=== PATIENT | female | born 1975 | race Caucasian/White ===

== ENCOUNTER 2016-12-09 10:54 | Emergency (ER) | payer MEDICAID ==
[~2016-12-09] VITALS: Ht 165.1 cm; Wt 51.7 kg
[~2016-12-09 10:54] MED LIST: ATIVAN1 MG PO
[2016-12-09 11:30] VITALS: BP 138/90
--- NOTE | 2016-12-09 11:36 | NUR ---
PT AMBULATED TO BED 8 AT THIS TIME.
[2016-12-09 11:40] VITALS: BP 138/90
--- NOTE | 2016-12-09 11:41 | NUR ---
41/F presents to the ED for evaluation of nose bleeds for the past 4-5 days. Pt also reports having stitches to left cheek in place for approximately over 1 month. Pt also has complaints of migraine headaches for the past 3-4 months. Pt states she had a nose bleed this morning and it stopped about 1-2 hours prior to arrival. Patient also reports being an alcoholic and has had 4 drinks today. Patient is AOX4, calm and no visible signs of distress noted. VSS.
--- NOTE | 2016-12-09 12:07 | NUR ---
Patient ambulated to restroom with steady gait to provide UA.
--- NOTE | 2016-12-09 12:13 | NUR ---
Patient being evaluated by physician at bedside.
--- NOTE | 2016-12-09 12:45 | NUR ---
NO FARTHER NOSEBLEED IN ER.DENIES DISCOMFORT
--- NOTE | 2016-12-09 12:55 | NUR ---
Chart checked and completed. The patient's care was reviewed and supervised by Tawanna Greenberg RN.
--- NOTE | 2016-12-09 12:55 | NUR ---
Patient discharged with v/s stable. Written and verbal after care instructions given and explained. Patient alert, oriented and verbalized understanding of instructions. Ambulatory with steady gait. All questions addressed prior to discharge. ID band removed. Patient advised to follow up with PMD. Rx of CLARITIN,OXYMETAZOLINE HCL 0.05% NASAL SPRAYgiven. Patient educated on indication of medication including possible reaction and side effects. Opportunity to ask questions provided and answered.
[2017-02-05] MEDS ORDERED: CEPHULAC10 GM/152 PO (15:03)
[2017-02-05] MEDS ORDERED: NATURE'S BLEND100 M2 PO (15:03)
[2017-02-05] MEDS ORDERED: FEROSUL325 MG PO (15:03)
[2017-02-05] MEDS ORDERED: FUROSEMIDE40 M1 PO (15:03)
[2017-02-05] MEDS ORDERED: FLORASTOR250 MG PO (15:03)
[2017-02-05] MEDS ORDERED: ALDACTONE50 M1 PO (15:03)
[2017-02-05] MEDS ORDERED: NATURE'S BLEND F1 M1 PO (15:03)
[2017-02-05] MEDS ORDERED: LEVAQUIN750 MG PO (15:03)
[2017-02-05] MEDS ORDERED: ATIVAN1 MG PO (15:03)
[2017-02-05] MEDS ORDERED: XIFAXAN550 MG PO (15:05)
[2017-02-05] MEDS ORDERED: ROXICODONE5 M1 PO (15:05)
== END 2016-12-09 12:55 | disposition home or self-care (01) ==
LOC: MED 11:09
DX: R04.0 Epistaxis (principal); S01.412D Laceration without foreign body of left cheek and temporomandibular area, subsequent encounter; F10.10 Alcohol abuse, uncomplicated; Y90.9 Presence of alcohol in blood, level not specified

== ENCOUNTER 2017-01-07 01:55 | Emergency (ER) | payer MEDICAID ==
[~2017-01-07] VITALS: Ht 165.1 cm; Wt 59.0 kg
[2017-01-07 02:00] VITALS: BP 115/78
--- NOTE | 2017-01-07 02:52 | NUR ---
41/F BIB FAMILY W/C/O DIZZINESS S/P FALL 3DAYS AGO. STATES SHE HAS LEFT FLANK PAIN RADIATING TO LOWER BACK. DENIES ANY FEVER, NAUSEA OR VOMITTING. NO S/S OF DISTRESS NOTED AT THE MOMENT. ER MD AWARED.
--- NOTE | 2017-01-07 02:54 | NUR ---
Dr. Wise evaluating patient at bedside.
[2017-01-07] MEDS ORDERED: MORPHINE SULFATE 10 MG/ML SYR IM ONE (03:20)
[2017-01-07 04:03] VITALS: BP 112/64
--- NOTE | 2017-01-07 04:03 | NUR ---
Patient discharged BY ER MD with v/s stable. Written and verbal after care instructions given and explained BY DR OZUNA. Patient verbalized understanding. Ambulatory with steady gait. All questions addressed prior to discharge. Advised to follow up with PMD OR RETURN BACK TO ER IF CONDITION GETS WORSE..
[2017-02-05] MEDS ORDERED: FUROSEMIDE40 M1 PO (15:03)
[2017-02-05] MEDS ORDERED: NATURE'S BLEND100 M2 PO (15:03)
[2017-02-05] MEDS ORDERED: NATURE'S BLEND F1 M1 PO (15:03)
[2017-02-05] MEDS ORDERED: LEVAQUIN750 MG PO (15:03)
[2017-02-05] MEDS ORDERED: FLORASTOR250 MG PO (15:03)
[2017-02-05] MEDS ORDERED: ALDACTONE50 M1 PO (15:03)
[2017-02-05] MEDS ORDERED: FEROSUL325 MG PO (15:03)
[2017-02-05] MEDS ORDERED: ATIVAN1 MG PO (15:03)
[2017-02-05] MEDS ORDERED: CEPHULAC10 GM/152 PO (15:03)
[2017-02-05] MEDS ORDERED: ROXICODONE5 M1 PO (15:05)
[2017-02-05] MEDS ORDERED: XIFAXAN550 MG PO (15:05)
== END 2017-01-07 04:03 | disposition home or self-care (01) ==
LOC: MED 01:55
DX: S33.5XXA Sprain of ligaments of lumbar spine, initial encounter (principal); K70.9 Alcoholic liver disease, unspecified; X58.XXXA Exposure to other specified factors, initial encounter; Y93.89 Activity, other specified; Y92.89 Other specified places as the place of occurrence of the external cause; Y99.8 Other external cause status
CPT/HCPCS: 81002; 81025; 96372; 99283; J2270

== ENCOUNTER 2017-01-24 04:34 | Emergency (ER) | payer MEDICAID ==
[~2017-01-24] VITALS: Ht 165.1 cm; Wt 56.7 kg
[2017-01-24 04:39] VITALS: BP 111/85
--- NOTE | 2017-01-24 04:47 | NUR ---
Patient to OF.
--- NOTE | 2017-01-24 04:48 | NUR ---
PATIENT PRESENTS TO ED WITH FELL LAST WEEKEND. LOWER BACK PAIN PERSISTS. . PT DENIES N/V/D; SKIN IS PINK/WARM/DRY; AAOX4 WITH EVEN AND STEADY GAIT; LUNGS CLEAR BL; HR EVEN AND REGULAR; PT DENIES ANY FEVER, CP, SOB, OR COUGH AT THIS TIME; PATIENT STATES PAIN OF 10/10 AT THIS TIME; VSS; PATIENT POSITIONED FOR COMFORT; HOB ELEVATED; BEDRAILS UP X2; BED DOWN. ER MD MADE AWARE OF PT STATUS.
--- NOTE | 2017-01-24 05:07 | NUR ---
Dr. James evaluating patient.
--- NOTE | 2017-01-24 05:17 | NUR ---
Patient going to XRAY via wheelchair per tech.
--- NOTE | 2017-01-24 05:30 | NUR ---
Patient back from XRAY via wheelchair per tech.
[2017-01-24 06:19] VITALS: BP 114/79
--- NOTE | 2017-01-24 06:19 | NUR ---
Patient discharged with v/s stable. Written and verbal after care instructions given and explained. Patient alert, oriented and verbalized understanding of instructions. Ambulatory with steady gait. All questions addressed prior to discharge. ID band removed. Patient advised to follow up with PMD. Rx of NAPROSYN 375MG given. Patient educated on indication of medication including possible reaction and side effects. Opportunity to ask questions provided and answered.
[2017-02-05] MEDS ORDERED: FLORASTOR250 MG PO (15:03)
[2017-02-05] MEDS ORDERED: NATURE'S BLEND F1 M1 PO (15:03)
[2017-02-05] MEDS ORDERED: CEPHULAC10 GM/152 PO (15:03)
[2017-02-05] MEDS ORDERED: ATIVAN1 MG PO (15:03)
[2017-02-05] MEDS ORDERED: ALDACTONE50 M1 PO (15:03)
[2017-02-05] MEDS ORDERED: FEROSUL325 MG PO (15:03)
[2017-02-05] MEDS ORDERED: FUROSEMIDE40 M1 PO (15:03)
[2017-02-05] MEDS ORDERED: LEVAQUIN750 MG PO (15:03)
[2017-02-05] MEDS ORDERED: NATURE'S BLEND100 M2 PO (15:03)
[2017-02-05] MEDS ORDERED: ROXICODONE5 M1 PO (15:05)
[2017-02-05] MEDS ORDERED: XIFAXAN550 MG PO (15:05)
== END 2017-01-24 06:19 | disposition home or self-care (01) ==
LOC: MED 04:34
DX: M54.9 Dorsalgia, unspecified (principal)

== ENCOUNTER 2017-01-31 08:12 | Inpatient (IN) | payer MEDICAID ==
[~2017-01-31] VITALS: Ht 160 cm; Wt 63.0 kg
[~2017-01-31 08:12] MED LIST changes: -ATIVAN1 MG PO; +LORA-476 PO
[2017-01-31 08:30] VITALS: BP 105/72
--- NOTE | 2017-01-31 08:32 | NUR ---
Patient ambulated to bed 3. RN evaluating patient at bedside.
[2017-01-31] MEDS ORDERED: FAMOTIDINE 20 MG/2 ML VIAL IVP ONE (08:40)
[2017-01-31] MEDS ORDERED: ONDANSETRON 4 MG/2 ML VIAL IVP ONE (08:40)
--- NOTE | 2017-01-31 09:00 | NUR ---
PATIENT PRESENTS TO ED WITH LARGE ADBOMINAL DISTENSION, BACK PAIN AND NAUSEA . PT STATES ABDOMEN DISTENDED YESTERDAY . ALSO C/O CONSTIPATION AND OLIGURIA SKIN IS JAUNDICE WELL SCLERA YELLOWING--DRY COOL TO TOUCH; AAOX4 WITH EVEN AND STEADY GAIT; LUNGS CLEAR BL; HR EVEN AND REGULAR; PT DENIES ANY FEVER, CP, SOB, OR COUGH AT THIS TIME; PATIENT STATES PAIN OF 10/10 AT THIS TIME; VSS; PATIENT POSITIONED FOR COMFORT; HOB ELEVATED; BEDRAILS UP X2; BED DOWN. ER MD MADE AWARE OF PT STATUS.
[2017-01-31] MEDS: NACL 0.9% 1,000 ML IV SCH ×3 (09:03→23:29)
--- NOTE | 2017-01-31 09:10 | NUR ---
# 14 FR straight catheter utilizing sterile technique. Immediate return of 30 ml orange, clear urine noted. Bedside drainage bag placed below level of bladder. Urine sample collected and sent to lab. Pt tolerated procedure well. Pt placed into position of comfort. Warm blankets provided.
[2017-01-31 09:14] LABS: HEMATOCRIT 25.6 % (36-48); HEMOGLOBIN 7.8 g/dL (12.0-16.0); MEAN CORPUSCULAR HEMOGLOBIN 25 pg (27-31); MEAN CORPUSCULAR HGB CONC 30 g/dL (33-37); MEAN CORPUSCULAR VOLUME 84 fL (80-94); PLATELET COUNT (AUTO) 81 K/uL (140-450); RED BLOOD CELL COUNT(AUTO) 3.05 MIL/uL (4.20-5.40); RED CELL DISTRIBUTION WIDTH 19.3 % (11.6-13.7); WHITE BLOOD COUNT (AUTO) 13.5 K/uL (4.8-10.8)
[2017-01-31 09:23] LABS: ANION GAP 11.7 (8-16); CALCIUM 7.6 mg/dL (8.5-10.1); CARBON DIOXIDE 27.9 mmol/L (21-32); CREATININE 0.6 mg/dL (0.6-1.3); LYMPHOCYTES % (MANUAL) 13 % (20-46); MONOCYTES % (MANUAL) 5 % (5-12); NEUTROPHILS % (MANUAL) 82 (43-65); POTASSIUM 3.6 mmol/L (3.5-5.1)
[2017-01-31 09:25] LABS: INR 1.4 (0.8-1.2); PARTIAL THROMBOPLASTIN TIME 30.1 secs (22-35.6); PROTHROMBIN TIME 13.6 secs (10.8-13.4)
[2017-01-31 09:27] LABS: ALBUMIN 2.5 g/dL (3.4-5.0); TOTAL BILIRUBIN 4.6 mg/dL (0.0-1.0)
--- NOTE | 2017-01-31 09:30 | NUR ---
PT TO CT VIA [facility]
--- NOTE | 2017-01-31 09:47 | NUR ---
X-Ray at bedside.
--- NOTE | 2017-01-31 09:47 | NUR ---
RETURNED FROM CT---
[2017-01-31] MEDS ORDERED: MORPHINE SULFATE 4 MG/ML SYR IVP ONE (10:15)
[2017-01-31] MEDS ORDERED: PSEUDOEPHEDRINE 30 MG TAB ONE (10:30)
--- NOTE | 2017-01-31 10:39 | NUR ---
MEDICATED FOR BACK AND ABD PAIN--05/03; PT ADMITS TOLERABLE LEVEL IS 02/01--WILL CONTINUE TO OBSERVE AND MONITOR FOR PAIN CONTROL---ULTRA SOUND AT BEDSIDE AT THIS TIME.
[2017-01-31] MEDS ORDERED: cefTRIAXone 2,000 MG in DEXTROSE 5% 100 ML IV ONE (11:00)
--- NOTE | 2017-01-31 11:32 | NUR ---
PT DENIES PAIN AT THIS TIME. RESTING WITH OU CLOSED , NO S/S RESP DISTRESS---WILL CONTINUE TO OBSERVE FOR PAIN CONTROL
[2017-01-31] MEDS ORDERED: cefTRIAXone 2,000 MG VIAL ONE (11:39)
--- NOTE | 2017-01-31 11:49 | NUR ---
Pt transferred to Tele via [employer], REPORT GIVEN TO IAN MATHEW
[2017-01-31 11:56] LABS: LACTIC ACID 2.4 mmol/L (0.4-2.0)
--- NOTE | 2017-01-31 12:08 | NUR ---
RECEIVED PT ON UNIT FROM ER, PT IS A/OX4, IV IS ON THE LT AC, PATENT, INTACT, INFUSING WELL, SKIN IS INTACT, INITIAL ASSESSMENT DONE, ABDOMEN IS DISTENDED, LIGHT YELLOW COLORING OF BOTH EYES, NO S/S OF RESPIRATORY DISTRESS OR DISCOMFORT NOTED, DISCUSSED PLAN OF CARE WITH PT, PT VERBALIZED UNDERSTANDING, SAFETY/FALL PRECAUTIONS IN PLACE, ORIENTED PT TO ROOM, CALL LIGHT IS WITHIN REACH, WILL CONTINUE TO MONITOR.
[2017-01-31 12:25] LABS: AMPHETAMINE, URINE NEG. ng/ml (NEG <=1000); BARBITURATE, URINE NEG. ng/ml (NEG <=200); BENZODIAZEPINE, URINE NEG. ng/mL (NEG <=200); CANNABINOID, URINE NEG. ng/mL (NEG <=50); COCAINE, URINE NEG. ng/mL (NEG <=300); OPIATE, URINE NEG. ng/mL (NEG <=2000); PHENCYCLIDINE SCREEN,URINE NEG. ng/mL (NEG <=25)
[2017-01-31] MEDS ORDERED: KETOROLAC 30 MG/ML VIAL IVP PRN (12:40)
[2017-01-31] MEDS ORDERED: DOCUSATE SODIUM 100 MG GELCAP PO PRN (12:40)
[2017-01-31] MEDS ORDERED: ACETAMINOPHEN 325 MG SUPP RC PRN (12:40)
[2017-01-31] MEDS ORDERED: LORazepam 1 MG TAB PO SCH (12:40)
[2017-01-31 13:26] LABS: ALBUMIN 2.5 g/dL (3.4-5.0); BILIRUBIN,DIRECT 3.5 mg/dL (0.0-0.3); THYROID STIMULATING HORMONE 4.37 uIU/mL (0.34-3.76); TOTAL BILIRUBIN 4.6 mg/dL (0.0-1.0)
--- NOTE | 2017-01-31 14:17 | NUR ---
PT SLEEPING AT THIS TIME, NO S/S OF RESPIRATORY DISTRESS OR DISCOMFORT NOTED, WILL CONTINUE TO MONITOR.
[2017-01-31] MEDS: MORPHINE SULFATE 2 MG/ML SYR IVP PRN ×3 (15:47→23:27)
--- NOTE | 2017-01-31 15:47 | NUR ---
PT COMPLAINED OF A 8/10 PAIN, WILL MEDICATE WITH PRN PAIN MEDICATION AT THIS TIME.
[2017-01-31 16:00] VITALS: BP 114/76
--- NOTE | 2017-01-31 16:17 | NUR ---
PT SLEEPING AT THIS TIME.
[2017-01-31] MEDS: ONDANSETRON 4 MG/2 ML VIAL IVP PRN ×2 (18:26→22:42)
--- NOTE | 2017-01-31 19:20 | NUR ---
ENDORSED PT TO QUINCY BENJAMIN. FOR CONTINUITY OF CARE, PT STABLE AT THIS TIME.
--- NOTE | 2017-01-31 19:25 | NUR ---
RECEIVED PT AWAKE WITH DR PALUMBO AT BEDSIDE FOR PSYCH CONSULT, CALL LIGHT WITHIN REACH.
--- NOTE | 2017-01-31 19:50 | NUR ---
VITAL SIGNS STABLE, ST ON TELE BUT DENIES CHEST PAIN, MEDICATED PRN FOR ABDOMINAL PAIN WITH MORPHINE IVP, DENIES N/V BUT CANNOT TOLERATE PO LIQUID AT THIS TIME, IVF INFUSING WELL, ASCITES NOTED, POSITIVE BOWEL SOUNDS AND VERBALIZED PASSING GAS, SAFETY MEASURES IN PLACE.
[2017-01-31 20:00] VITALS: BP 124/90
--- NOTE | 2017-01-31 22:45 | NUR ---
PT ATTEMPTED TO DRINK WATER BUT VOMITED IT RIGHT AWAY, MEDICATED PRN WITH ZOFRAN IVP WITH RELIEF OBTAINED, MONITORED CLOSELY.
--- NOTE | 2017-01-31 23:30 | NUR ---
PT COMPLAINING OF ABDOMINAL PAIN, VITAL SIGNS STABLE, ST ON TELE, DENIES CHEST PAIN, MEDICATED PRN WITH MORPHINE, NO N/V AT THIS TIME, IVF INFUSING WELL, CONTINUE TO MONITOR CLOSELY.
[2017-02-01] VITALS: BP 128/83
[2017-02-01] MEDS: LORazepam 2 MG/ML VIAL IVP PRN (01:12)
--- NOTE | 2017-02-01 01:20 | NUR ---
PT RESTLESS AND UNABLE TO GO TO SLEEP, TREMORS NOTED, AMBULATED TO BR WITH MINIMAL ASSIST AND VOIDED FREELY, ATIVAN IVP PRN GIVEN, SAFETY MEASURES IN PLACE, CALL LIGHT WITHIN REACH, MONITORED CLOSELY.
[2017-02-01] MEDS: MORPHINE SULFATE 2 MG/ML SYR IVP PRN ×4 (03:31→22:58)
--- NOTE | 2017-02-01 03:35 | NUR ---
VITAL SIGNS STABLE, MEDICATED PRN FOR PAIN, NO N/V AT THIS TIME, MONITORED CLOSELY.
[2017-02-01 04:00] VITALS: BP 130/85
--- NOTE | 2017-02-01 06:00 | NUR ---
PT AWAKE, VERBALIZED TOLERATING WATER AT THIS TIME, IVF INFUSING WELL, MONITORED CLOSELY.
[2017-02-01 06:06] LABS: ANION GAP 10.7 (8-16); CALCIUM 6.6 mg/dL (8.5-10.1); CARBON DIOXIDE 27.6 mmol/L (21-32); CREATININE 0.4 mg/dL (0.6-1.3); POTASSIUM 4.3 mmol/L (3.5-5.1)
[2017-02-01 06:20] LABS: MEAN CORPUSCULAR HEMOGLOBIN 26 pg (27-31); MEAN CORPUSCULAR HGB CONC 31 g/dL (33-37); MEAN CORPUSCULAR VOLUME 85 fL (80-94); PLATELET COUNT (AUTO) 65 K/uL (140-450); RED BLOOD CELL COUNT(AUTO) 2.47 MIL/uL (4.20-5.40); RED CELL DISTRIBUTION WIDTH 19.4 % (11.6-13.7); WHITE BLOOD COUNT (AUTO) 13.8 K/uL (4.8-10.8)
[2017-02-01 06:25] LABS: MAGNESIUM 1.9 mg/dL (1.8-2.4)
[2017-02-01 06:29] LABS: HEMOGLOBIN 6.5 g/dL (12.0-16.0)
--- NOTE | 2017-02-01 07:30 | NUR ---
PT AWAKE, NO DISTRESS NOTED, REPORT GIVEN TO CLEANING AND MAINTENANCE WORKER JOWIE.
[2017-02-01 08:00] VITALS: BP 126/81
[2017-02-01 08:12] LABS: EOSINOPHILS % (MANUAL) 1 % (0-4); LYMPHOCYTES % (MANUAL) 20 % (20-46); MONOCYTES % (MANUAL) 7 % (5-12); NEUTROPHILS % (MANUAL) 72 (43-65)
--- NOTE | 2017-02-01 08:30 | NUR ---
RECEIVED REPORT FROM CHARGE NURSE, PT IS A/OX4, SLEEPING IN BED, PT HAS IV ON LEFT AC, PATENT, INTACT, FLUSHING WELL, SKIN IS INTACT, PT HAS YELLOW COLORING OF THE BOTH EYES, DISTENDED ABDOMEN, NO S/S OF RESPIRATORY DISTRESS OR DISCOMFORT NOTED, DISCUSSED PLAN OF CARE WITH PT, PT VERBALIZED UNDERSTANDING, CALL LIGHT IS WITHIN REACH, WILL CONTINUE TO MONITOR.
[2017-02-01] MEDS: SPIRONOLACTONE 50 MG TAB PO SCH ×2 (09:27→20:18)
[2017-02-01] MEDS: FOLIC ACID 1 MG TAB PO SCH (09:27)
[2017-02-01] MEDS: LACTOBACILLUS RHAMNOSUS GG 1 EACH CAP PO SCH (09:27)
[2017-02-01] MEDS: THIAMINE 100 MG TAB PO SCH (09:27)
[2017-02-01] MEDS: FUROSEMIDE 20 MG/2 ML VIAL IVP SCH ×2 (09:28→20:19)
[2017-02-01] MEDS: PANTOPRAZOLE 40 MG INJ VIAL IVP SCH (09:28)
--- NOTE | 2017-02-01 10:45 | NUR ---
PT AGREED TO SIGN CONSENT FOR EGD, PT OFF UNIT TO HAVE PROCEDURE DONE.
[2017-02-01] MEDS ORDERED: fentaNYL 0.05 MG/ML VIAL ONE (11:10)
[2017-02-01] MEDS ORDERED: diphenhydrAMINE 50 MG/ML VIAL ONE (11:10)
[2017-02-01] MEDS ORDERED: MIDAZOLAM 2 MG/2 ML VIAL ONE (11:10)
[2017-02-01] MEDS: NACL 0.9% 1,000 ML IV SCH (11:36)
--- NOTE | 2017-02-01 11:36 | NUR ---
PATIENT HAS BEEN SCREENED AND CATEGORIZED HIGH NUTRITION RISK. PATIENT WILL BE SEEN WITHIN 1-2 DAYS OF ADMISSION. 02/01/17-02/02/[address]
[2017-02-01] MEDS ORDERED: DIAZEPAM PFS 10 MG/2 ML SYR ONE (11:40)
--- NOTE | 2017-02-01 11:55 | NUR ---
PT RETURNED FROM EGD, PT IS SLEEPING IN BED, NO S/S OF RESPIRATORY DISTRESS OR DISCOMFORT NOTED, CALL LIGHT IS WITHIN REACH, WILL CONTINUE TO MONITOR.
[2017-02-01 12:00] VITALS: BP 97/57
[2017-02-01] MEDS: PROPRANOLOL 20 MG TAB PO SCH ×3 (12:00→23:51)
[2017-02-01] MEDS: LORazepam 1 MG TAB PO SCH ×3 (12:00→23:51)
[2017-02-01] MEDS ORDERED: DIAZEPAM PFS 10 MG/2 ML SYR IVP ONE (12:15)
[2017-02-01] MEDS ORDERED: MIDAZOLAM 2 MG/2 ML VIAL IVP ONE (12:15)
[2017-02-01] MEDS ORDERED: fentaNYL 0.05 MG/ML VIAL IVP ONE (12:15)
[2017-02-01] MEDS ORDERED: LIDOCAINE 1% 500 MG/50 ML VIAL INJ SCH (12:29)
--- NOTE | 2017-02-01 12:30 | NUR ---
PT IS SITTING IN BED WATCHING TV AT THIS TIME.
[2017-02-01 13:52] LABS: HEMATOCRIT 21.4 % (36-48); MEAN CORPUSCULAR HEMOGLOBIN 26 pg (27-31); MEAN CORPUSCULAR HGB CONC 31 g/dL (33-37); MEAN CORPUSCULAR VOLUME 86 fL (80-94); PLATELET COUNT (AUTO) 63 K/uL (140-450); RED BLOOD CELL COUNT(AUTO) 2.48 MIL/uL (4.20-5.40); RED CELL DISTRIBUTION WIDTH 19.4 % (11.6-13.7); WHITE BLOOD COUNT (AUTO) 14.3 K/uL (4.8-10.8)
[2017-02-01 14:04] LABS: HEMOGLOBIN 6.5 g/dL (12.0-16.0)
[2017-02-01 14:26] LABS: BAND % (MANUAL) 7 % (0-8); HYPOCHROMASIA 2+; LYMPHOCYTES % (MANUAL) 7 % (20-46); NEUTROPHILS % (MANUAL) 86 (43-65); PLATELET ESTIMATE DECREASED
[2017-02-01 15:13] LABS: TRANSFERRIN 229 mg/dL (200-370)
--- NOTE | 2017-02-01 15:20 | NUR ---
PT SIGNED CONSENT FOR PARACENTESES. SAMPLE CASE PORTER IS AT BEDSIDE.
--- NOTE | 2017-02-01 15:30 | NUR ---
DR. GUDINO IN PT ROOM, SPEAKING TO PT. Addendum: 02/01/17 at 1956 by Ani Leone RN PT BACK ON UNIT FROM HYDROSCAN NUCLEAR EXAM.
--- NOTE | 2017-02-01 15:46 | NUR ---
CM NOTE INITIAL REVIEW SENT TO [facility] FAX# [phone] PH# [phone]
[2017-02-01 16:00] VITALS: BP 124/80
[2017-02-01] MEDS ORDERED: ACETAMINOPHEN 325 MG TAB PO PRN (16:00)
[2017-02-01] MEDS ORDERED: FUROSEMIDE 20 MG TAB PO PRN (16:00)
--- NOTE | 2017-02-01 16:00 | NUR ---
PT OFF UNIT TO FINISH HYDROSCAN.
--- NOTE | 2017-02-01 16:24 | NUR ---
PT RETURNED TO UNIT FROM HYDROSCAN, PT IS STABLE AT THIS TIME, NO S/S OF RESPIRATORY DISTRESS OR DISCOMFORT NOTED, CALL LIGHT IS WITHIN REACH, WILL CONTINUE TO MONITOR.
--- NOTE | 2017-02-01 18:50 | NUR ---
PT COMPLAINED OF A 8/10 PAIN LEVEL, WILL MEDICATE WITH PRN PAIN MEDICATION.
[2017-02-01] MEDS: FERROUS SULFATE 325 MG TABEC PO SCH (19:00)
--- NOTE | 2017-02-01 19:25 | NUR ---
RECEIVED PT IN STABLE CONDITION FROM QUINCY SOSA. NO SOB, NO SIGNS OF DISTRESS. PT IS AOX4, AMBULATES WITH ASSIST. GENERALIZED WEAKNESS NOTED. SKIN IS INTACT. PT WITH ASCITIC ABDOMEN. PT C/O CONSTIPATION AND NAUSEA, WILL MEDICATE PER MD ORDER. HR TACHY, OTHER VS STABLE. PT ON 2L O2 NC. IV TO LT AC 20G SL, ASYMPTOMATIC, INTACT, PATENT. PLAN OF CARE DISCUSSED WITH PT. SAFETY MEASURES IN PLACE. CALL LIGHT WITHIN REACH. WILL CONTINUE TO MONITOR.
--- NOTE | 2017-02-01 19:30 | NUR ---
ENDORSED PT TO QUINCY CAPONE. FOR CONTINUITY OF CARE, PT STABLE AT THIS TIME.
[2017-02-01 20:00] VITALS: BP 132/91
[2017-02-01] MEDS: LACTULOSE 20 GM/30 ML UDC PO SCH (20:17)
--- NOTE | 2017-02-01 20:19 | NUR ---
PT TOLERATED DUE MEDS WELL. NO SOB, NO SIGNS OF DISTRESS. PT CONFUSED, REORIENTED PT. IV SITE ASYMPTOMATIC, INTACT, PATENT, SALINE LOCKED. PT DENIES PAIN AT THIS TIME. PT ON 2L O2 NC. PLAN OF CARE DISCUSSED WITH PT. SAFETY MEASURES IN PLACE. CALL LIGHT WITHIN REACH. WILL CONTINUE TO MONITOR.
[2017-02-01] MEDS: ONDANSETRON 4 MG/2 ML VIAL IVP PRN (20:20)
[2017-02-01] MEDS ORDERED: AMITRIPTYLINE 10 MG TAB PO SCH (21:00)
--- NOTE | 2017-02-01 21:45 | NUR ---
STARTED 1ST UNIT OF BLOOD. PT TOLERATING WELL. VS STABLE. NO SOB, NO SIGNS OF DISTRESS. IV SITE ASYMPTOMATIC, INTACT, PATENT, BLOOD RUNNING. PT DENIES PAIN AT THIS TIME. PT ON 2L O2 NC. PLAN OF CARE DISCUSSED WITH PT. SAFETY MEASURES IN PLACE. CALL LIGHT WITHIN REACH. WILL CONTINUE TO MONITOR.
--- NOTE | 2017-02-01 22:00 | NUR ---
VS STABLE. NO REACTION NOTED TO BLOOD. PT ON 2L O2 NC. NO SOB, NO SIGNS OF DISTRESS. PT DENIES PAIN AT THIS TIME. PLAN OF CARE DISCUSSED WITH PT. SAFETY MEASURES IN PLACE. CALL LIGHT WITHIN REACH. WILL CONTINUE TO MONITOR.
--- NOTE | 2017-02-01 22:45 | NUR ---
STARTED NEW IV LINE FOR PAIN MEDS WHILE PT IS RECEIVING BLOOD PRODUCTS. NEW IV TO RT FA 22G PATENT, ASYMPTOMATIC, INTACT, SALINE LOCKED.
[2017-02-02] VITALS: BP 139/71
--- NOTE | 2017-02-02 00:45 | NUR ---
1ST UNIT OF BLOOD FINISHED, PT TOLERATED WELL. VS STABLE. NO SOB, NO SIGNS OF DISTRESS. PT CONFUSED, REORIENTED PT. IV SITE ASYMPTOMATIC, INTACT, PATENT, IVF RUNNING TO FLUSH LINE. PT DENIES PAIN AT THIS TIME. PT ON 2L O2 NC. PLAN OF CARE DISCUSSED WITH PT. SAFETY MEASURES IN PLACE. CALL LIGHT WITHIN REACH. WILL CONTINUE TO MONITOR.
[2017-02-02] MEDS: LORazepam 2 MG/ML VIAL IVP PRN (01:34)
--- NOTE | 2017-02-02 01:34 | NUR ---
FOUND PT WALKING THROUGH HUYNH, CONFUSED, RESTLESS, AND AGITATED. MEDICATED PT WITH ATIVAN IV PER MD ORDER. NO SOB, NO SIGNS OF DISTRESS. IV SITES ASYMPTOMATIC, INTACT, PATENT, SALINE LOCKED. WALKED PT BACK TO ROOM AND INTO BED, REORIENTED PT. PLACED PT BACK ON 2L O2 NC. PL;AN OF CARE DISCUSSED WITH PT. SAFETY MEASURES IN PLACE. CALL LIGHT WITHIN REACH. WILL CONTINUE TO MONITOR.
--- NOTE | 2017-02-02 01:45 | NUR ---
STARTED 2ND UNIT OF BLOOD. PT TOLERATING WELL. VS STABLE. NO SOB, NO SIGNS OF DISTRESS. IV SITE ASYMPTOMATIC, INTACT, PATENT, BLOOD RUNNING. PT DENIES PAIN AT THIS TIME. PT ON 2L O2 NC. PLAN OF CARE DISCUSSED WITH PT. SAFETY MEASURES IN PLACE. CALL LIGHT WITHIN REACH. WILL CONTINUE TO MONITOR
[2017-02-02 04:00] VITALS: BP 144/84
--- NOTE | 2017-02-02 04:05 | NUR ---
2ND UNIT OF BLOOD FINISHED, PT TOLERATED WELL. VS STABLE. NO SOB, NO SIGNS OF DISTRESS. PT CONFUSED, REORIENTED PT. IV SITE ASYMPTOMATIC, INTACT, PATENT, IVF RUNNING TO FLUSH LINE. IV TO LT AC LEAKING, DC IV, PT TOLERATED WELL. MINIMAL BLEEDING NOTED. PT DENIES PAIN AT THIS TIME. PT ON 2L O2 NC. PLAN OF CARE DISCUSSED WITH PT. SAFETY MEASURES IN PLACE. CALL LIGHT WITHIN REACH. WILL CONTINUE TO MONITOR.
--- NOTE | 2017-02-02 04:30 | NUR ---
PT CONFUSED, TRYING TO LEAVE HOSPITAL, REORIENTED PT AND PUT PT BACK IN BED WITH O2 2L NC. NO SOB, NO SIGNS OF DISTRESS. IV SITE ASYMPTOMATIC, INTACT, PATENT, SALINE LOCKED. PT DENIES PAIN AT THIS TIME. PLAN OF CARE DISCUSSED WITH PT. SAFETY MEASURES IN PLACE. CLL LIGHT WITHIN REACH. WILL CONTINUE TO MONITOR.
[2017-02-02] MEDS: PROPRANOLOL 20 MG TAB PO SCH ×4 (05:41→23:28)
[2017-02-02] MEDS: LORazepam 1 MG TAB PO SCH ×4 (05:41→23:28)
[2017-02-02 06:17] LABS: HEMATOCRIT 28.3 % (36-48); HEMOGLOBIN 8.9 g/dL (12.0-16.0); MEAN CORPUSCULAR HEMOGLOBIN 26 pg (27-31); MEAN CORPUSCULAR HGB CONC 32 g/dL (33-37); MEAN CORPUSCULAR VOLUME 82 fL (80-94); PLATELET COUNT (AUTO) 77 K/uL (140-450); RED BLOOD CELL COUNT(AUTO) 3.44 MIL/uL (4.20-5.40); RED CELL DISTRIBUTION WIDTH 19.6 % (11.6-13.7); WHITE BLOOD COUNT (AUTO) 15.1 K/uL (4.8-10.8)
[2017-02-02 06:21] LABS: FERRITIN 42 ng/mL (15-150)
[2017-02-02 06:44] LABS: ANION GAP 10.9 (8-16); CALCIUM 7.2 mg/dL (8.5-10.1); CARBON DIOXIDE 27.1 mmol/L (21-32); CREATININE 0.5 mg/dL (0.6-1.3)
[2017-02-02 06:48] LABS: MAGNESIUM 1.6 mg/dL (1.8-2.4)
[2017-02-02 06:50] LABS: BAND % (MANUAL) 3 % (0-8); LYMPHOCYTES % (MANUAL) 3 % (20-46); MONOCYTES % (MANUAL) 3 % (5-12); MYELOCYTES % 1 % (0-0); NEUTROPHILS % (MANUAL) 90 (43-65)
[2017-02-02 06:51] LABS: HYPOCHROMASIA 1+; TARGET CELLS 1+
--- NOTE | 2017-02-02 07:25 | NUR ---
ENDORSED PT IN STABLE CONDITION TO QUINCY ANDREA. ALL NEEDS HAVE BEEN MET AT THIS TIME
[2017-02-02 07:27] LABS: PHOSPHORUS 0.8 mg/dL (2.5-4.9)
--- NOTE | 2017-02-02 07:27 | NUR ---
RECEIVED REPORT FROM NIGHT RN. PT RESTING IN BED. AAOX1. NO S/S OF ACUTE DISTRESS. PT DENIES PAIN. FLACC-0. ON O2 2L NC. IV SITE PATENT AND INTACT. CALL LIGHT WITHIN REACH. SAFETY MEASURES ENSURED. WILL CONTINUE TO MONITOR.
[2017-02-02] MEDS ORDERED: POTASSIUM CHLORIDE 40 MEQ, LIDOCAINE 1% 25 MG in NACL 0.9% 250 ML IV SCH (08:00)
[2017-02-02] MEDS: FERROUS SULFATE 325 MG TABEC PO SCH ×2 (08:00→17:16)
[2017-02-02 08:17] VITALS: BP 146/98
[2017-02-02] MEDS: FOLIC ACID 1 MG TAB PO SCH (09:00)
[2017-02-02] MEDS: LACTULOSE 20 GM/30 ML UDC PO SCH ×3 (09:00→21:01)
[2017-02-02] MEDS: LACTOBACILLUS RHAMNOSUS GG 1 EACH CAP PO SCH (09:00)
[2017-02-02] MEDS: SPIRONOLACTONE 50 MG TAB PO SCH ×2 (09:00→21:00)
[2017-02-02] MEDS: THIAMINE 100 MG TAB PO SCH (09:00)
[2017-02-02] MEDS: PANTOPRAZOLE 40 MG INJ VIAL IVP SCH (09:16)
[2017-02-02] MEDS: FUROSEMIDE 20 MG/2 ML VIAL IVP SCH (09:16)
--- NOTE | 2017-02-02 09:16 | NUR ---
PT RESTING IN BED. PT REFUSED TO TAKE MORNING ORAL MEDICATIONS.EXPLAINED IMPORTANCE OF PT TAKING MEDICATIONS. PT CONFUSED AND UNABLE TO UNDERSTAND. PT CONTINUES TO REFUSE. NO S/S OF ACUTE DISTRESS. DR. LOBO MADE AWARE. CALL LIGHT WITHIN REACH. SAFETY MEASURES ENSURED. WILL CONTINUE TO MONITOR.
--- NOTE | 2017-02-02 09:40 | NUR ---
QUINCY MARIN STATES PT FOUND AT BEDSIDE LEANING OVER BED. VSS. NO S/S OF ACUTE DISTRESS. PT STATES SOME BACK PAIN. DR. TOBIN MADE AWARE. ORDERS RECEIVED. PT'S IV NO LONGER FLUSHING. NEW IV STARTED. PT TRANSFERRED TO ROOM CLOSER TO NURSING STATION. BED ALARM ON. SOFT WRIST RESTRAINTS IN PLACE. WILL CONTINUE TO MONITOR.
--- NOTE | 2017-02-02 11:50 | NUR ---
PT NOTES CHART REVIEWED AND NOT CLEARED FOR PT BY RN AT THIS TIME D/T PATIENT EXPRESSING BACK PAIN AND PENDING XRAY RESULTS. WILL FOLLOW UP WITH PATIENT TOMORROW IF POSSIBLE AND AFTER RESULTS RECEIVED. PVEx1 Addendum: 02/02/17 at 1500 by Annabelle Alvarez PT PHYSICAL THERAPY CO-SIGN The Physical Therapy Progress Notes documented by Print Inspector have been reviewed. Reviewed/Co-Signed by: Annabelle Alvarez, PT Documentation Done by: Eder Batres PTA
--- NOTE | 2017-02-02 11:56 | NUR ---
PT RESTING IN BED. NO S/S OF ACUTE DISTRESS. PT DENIES PAIN AT THIS TIME. IV SITE PATENT AND INTACT. SOFT RESTRAINTS IN PLACE. CALL LIGHT WITHIN REACH. SAFETY MEASURES ENSURED. WILL CONTINUE TO MONITOR.
[2017-02-02 12:00] VITALS: BP 137/90
--- NOTE | 2017-02-02 13:02 | NUR ---
CALLED BRISEIDA HERNÁNDEZ REGARDING CONSENT FOR PARACENTESIS. UNABLE TO LEAVE MESSAGE. WILL TRY AGAIN.
[2017-02-02 13:11] LABS: APPEARANCE,SPUN,BODY FLUID CLEAR (CLEAR); APPEARANCE,UNSPUN,BODY FLUID CLEAR (CLEAR); COLOR,BODY FLUID YELLOW (LT YELLOW); RBC, BODY FLUID 1058.75 /cu. mm.; SPECIMENTYPE,BODY FLUID Peritoneal Fluid; WBC, BODY FLUID 15 /cu. mm.
[2017-02-02 13:19] LABS: MONONUCLEAR, BODY FLUID 80 %; POLYNUCLEAR, BODY FLUID 20 %
[2017-02-02] MEDS ORDERED: POTASSIUM PHOSPHATE 15 MM, MAGNESIUM SULFATE 50% 2,000 MG in NACL 0.9% 250 ML IV SCH (13:30)
--- NOTE | 2017-02-02 13:56 | NUR ---
CALLED PT'S MOTHER AGAIN REGARDING CONSENT. NO ANSWER. UNABLE TO LEAVE MESSAGE. WILL CONTINUE TO CALLBACK
[2017-02-02 14:08] LABS: PROTEIN, BODY FLUID 2.1 g/dL
[2017-02-02 14:14] LABS: GLUCOSE,BODY FLUID 83 mg/dL
--- NOTE | 2017-02-02 14:17 | NUR ---
02/02/17 RD INITIAL ASSESSMENT COMPLETED PLEASE REFER TO NUTRITION ASSESSMENT UNDER CARE ACTIVITY FOR ESTIMATED NUTRITIONAL NEEDS. RD RECOMMENDATIONS: 1. WHEN MEDICALLY APPROPRIATE ADVANCE TO REGULAR DIET TOLERATED. 2. INCREASE PROTEIN AND KCAL NEEDS FOR SEPSIS AND CIRRHOSIS. 3. RD WILL F/U 3-5 DAYS; MODERATE RISK. MARILYN SCOTT RD
--- NOTE | 2017-02-02 14:44 | NUR ---
CM NOTE CONCURRENT REVIEW SENT TO [facility] FAX# [phone] TRACKING# [id number] PH# [phone]
--- NOTE | 2017-02-02 15:12 | NUR ---
PT IS AGITATED AND PULLING AT RESTRAINTS. RESTRAINTS APPLIED PER PROTOCOL. NO S/S OF ACUTE DISTRESS. PT DENIES PAIN. NO S/S OF INJURY. GOOD CIRCULATION. CALL LIGHT WITHIN REACH. SAFETY MEASURES ENSURED. WILL CONTINUE TO MONITOR.
[2017-02-02 15:21] LABS: HEMATOCRIT 31.2 % (36-48); HEMOGLOBIN 9.6 g/dL (12.0-16.0); MEAN CORPUSCULAR HEMOGLOBIN 26 pg (27-31); MEAN CORPUSCULAR HGB CONC 31 g/dL (33-37); MEAN CORPUSCULAR VOLUME 83 fL (80-94); PLATELET COUNT (AUTO) 90 K/uL (140-450); RED BLOOD CELL COUNT(AUTO) 3.74 MIL/uL (4.20-5.40); RED CELL DISTRIBUTION WIDTH 19.7 % (11.6-13.7); WHITE BLOOD COUNT (AUTO) 16.1 K/uL (4.8-10.8)
[2017-02-02] MEDS: metroNIDAZOLE 500 MG/NS PREMIX 100 ML IV SCH ×2 (15:26→20:52)
[2017-02-02] MEDS ORDERED: LORazepam 2 MG/ML VIAL IVP SCH (15:47)
[2017-02-02 16:00] VITALS: BP 149/88
--- NOTE | 2017-02-02 16:08 | NUR ---
PT AGITATED AND CONTINUES TO PULL ON RESTRAINTS. BRUISING NOTED TO LEFT HAND AND WRIST. GOOD CIRCULATION. PT DENIES PAIN. ATIVAN ADMINISTERED PER PROTOCOL. DR TOBIN MADE AWARE AND CHARGE MADE AWARE.
[2017-02-02 16:30] LABS: BAND % (MANUAL) 7 % (0-8); EOSINOPHILS % (MANUAL) 1 % (0-4); LYMPHOCYTES % (MANUAL) 4 % (20-46); MONOCYTES % (MANUAL) 7 % (5-12); NEUTROPHILS % (MANUAL) 81 (43-65); PLATELET ESTIMATE DECREASED
[2017-02-02 16:31] LABS: HYPOCHROMASIA 1+
[2017-02-02] MEDS ORDERED: MAG SULF 2000 MG/WATER PREMIX 50 ML IV SCH (18:30)
[2017-02-02] MEDS: PIPER/TAZO 3.375GM/D5W PREMIX 50 ML IV SCH ×2 (18:52→23:29)
--- NOTE | 2017-02-02 19:30 | NUR ---
ENDORSED PLAN OF CARE TO NIGHT RN. PT REMAINS IN STABLE CONDITION.
--- NOTE | 2017-02-02 19:45 | NUR ---
RECEIVED PT IN STABLE CONDITION FROM AM NURSE. PT IS AWAKE,BUT CONFUSED. NO DISTRESS NOTED, ON TELE MONITOR, FAMILY AT BEDSIDE. STILL TRYING TO REMOVE TUBINGS ,SO STILL WITH STANLEY SOFT RESTRAINT. BOTH ARMS BRUISED. BUT BLOOD CIRCULATION GOOD. PT WAS INCONTINENT. CLEANED AND KEPT DRY. REPOSITIONED FOR COMFORT. HAS IVF INFUSING WELL ON THE LT FA#[id number]. CLEAR AND PATENT. CALL LIGHT PLACED WITHIN EASY REACH. BUT DUE TO CONFUSION, NEED FREQUENT ROUNDS. BED ON LOW POSITION, SIDE RAILS UP X2. WILL CONTINUE TO MONITOR.
[2017-02-02 20:00] VITALS: BP 117/77
--- NOTE | 2017-02-02 21:00 | NUR ---
PT REFUSED TO TAKE DUE PO MEDS.
[2017-02-02] MEDS: POTASSIUM CHL 20MEQ/D5-NS 1,000 ML IV SCH (21:04)
--- NOTE | 2017-02-02 22:00 | NUR ---
ENDORSED PT IN STABLE CONDITION TO QUINCY RICK FOR CONTINUITY OF CARE.
--- NOTE | 2017-02-02 22:15 | NUR ---
RECEIVED REPORT FROM QUINCY BELLE FOR TRANSFER OF CARE.
--- NOTE | 2017-02-02 23:33 | NUR ---
PO MEDS ADMINISTERED, PT TOLERATED WELL. NO SOB NOTED AT THIS TIME. WILL CONTINUE MONITOR.
[2017-02-03] VITALS: BP 118/81
--- NOTE | 2017-02-03 00:30 | NUR ---
ADMINISTERED IV MAG PER CHARGE NURSE OK TO GIVE AT THIS TIME SINCE OTHER IVF WERE STILL INFUSING. NO SOB NOTED AT THIS TIME. WILL CONTINUE TO MONITOR.
[2017-02-03 04:00] VITALS: BP 109/85
[2017-02-03] MEDS: metroNIDAZOLE 500 MG/NS PREMIX 100 ML IV SCH (04:44)
--- NOTE | 2017-02-03 05:30 | NUR ---
PT RESTING IN BED. NO S/S OF RESP DISTRESS NOTED AT THIS TIME. WILL CONTINUE TO MONITOR.
[2017-02-03] MEDS: PIPER/TAZO 3.375GM/D5W PREMIX 50 ML IV SCH ×3 (06:07→17:10)
[2017-02-03] MEDS: PROPRANOLOL 20 MG TAB PO SCH ×3 (06:07→17:02)
[2017-02-03] MEDS: LORazepam 1 MG TAB PO SCH ×3 (06:07→17:03)
[2017-02-03] MEDS: POTASSIUM CHL 20MEQ/D5-NS 1,000 ML IV SCH (06:55)
[2017-02-03 06:57] LABS: BASOPHILS % (AUTO) 0.1 % (0.0-2.0); EOSINOPHILS # (AUTO) 0.3 K/uL (0-0.4); EOSINOPHILS % (AUTO) 1.7 % (0.0-4.0); HEMATOCRIT 30.3 % (36-48); HEMOGLOBIN 9.4 g/dL (12.0-16.0); LYMPHOCYTES # (AUTO) 2.6 K/uL (2.5-16.5); LYMPHOCYTES % (AUTO) 16.4 % (20.5-51.1); MEAN CORPUSCULAR HEMOGLOBIN 26 pg (27-31); MEAN CORPUSCULAR HGB CONC 31 g/dL (33-37); MEAN CORPUSCULAR VOLUME 83 fL (80-94); MONOCYTES # (AUTO) 1.7 K/uL (0.8-1.0); MONOCYTES % (AUTO) 10.4 % (1.7-9.3); NEUTROPHILS # (AUTO) 11.5 K/uL (1.8-7.7); NEUTROPHILS % (AUTO) 71.4 % (42.2-75.2); PLATELET COUNT (AUTO) 98 K/uL (140-450); RED BLOOD CELL COUNT(AUTO) 3.64 MIL/uL (4.20-5.40); RED CELL DISTRIBUTION WIDTH 20.4 % (11.6-13.7)
--- NOTE | 2017-02-03 07:07 | NUR ---
ENDORSED PLAN OF CARE TO QUINCY ANDREA FOR TRANSFER OF CARE. PT STABLE AT THIS TIME
--- NOTE | 2017-02-03 07:10 | NUR ---
RECEIVED REPORT FROM VERONA RN. PT RESTING IN BED. AAOX3. NO S/S OF ACUTE DISTRESS. PT DENIES PAIN. IV SITE PATENT AND INTACT. . Addendum: 02/03/17 at 0823 by Rick Keene RN SOFT WRIST RESTRAINTS APPLIED PER PROTOCOL. BRUISING TO BILATERAL WRIST NOTED. CALL LIGHT WITHIN REACH. SAFETY MEASURES ENSURED. WILL CONTINUE TO MONITOR.
[2017-02-03 07:42] LABS: WHITE BLOOD COUNT (AUTO) 16.2 K/uL (4.8-10.8)
[2017-02-03 07:49] LABS: ANION GAP 13.1 (8-16); CALCIUM 7.3 mg/dL (8.5-10.1); CARBON DIOXIDE 25.9 mmol/L (21-32); CREATININE 0.5 mg/dL (0.6-1.3)
[2017-02-03 08:06] VITALS: BP 109/76
[2017-02-03] MEDS: THIAMINE 100 MG TAB PO SCH (08:41)
[2017-02-03] MEDS: FERROUS SULFATE 325 MG TABEC PO SCH ×2 (08:41→17:10)
[2017-02-03] MEDS: FOLIC ACID 1 MG TAB PO SCH (08:41)
[2017-02-03] MEDS: LACTOBACILLUS RHAMNOSUS GG 1 EACH CAP PO SCH (08:41)
[2017-02-03] MEDS: SPIRONOLACTONE 50 MG TAB PO SCH ×2 (08:41→21:00)
[2017-02-03] MEDS: PANTOPRAZOLE 40 MG INJ VIAL IVP SCH (08:42)
[2017-02-03] MEDS: LACTULOSE 20 GM/30 ML UDC PO SCH ×4 (08:42→21:00)
[2017-02-03 08:50] LABS: MAGNESIUM 2.3 mg/dL (1.8-2.4); PHOSPHORUS 1.1 mg/dL (2.5-4.9)
[2017-02-03] MEDS ORDERED: METHOCARBAMOL 500 MG TAB PO SCH (09:00)
--- NOTE | 2017-02-03 09:39 | NUR ---
PT TOLERATED AM MEDS WELL. NO S/S OF ACUTE DISTRESS. RESTRAINTS REMOVED FOR FURTHER ASSESSMENT OF NEED. BRUISING TO BILATERAL WRIST NOTED. NURSE AT BEDSIDE. BED ALARM ON. PT DENIES PAIN AT THIS TIME. CALL LIGHT WITHIN REACH. WILL CONTINUE TO MONITOR.
--- NOTE | 2017-02-03 10:59 | NUR ---
CM NOTE CONCURRENT REVIEW SENT TO [facility] FAX# [phone] TRACKING# [id number] PH# [phone] MIC [place] [id number]
--- NOTE | 2017-02-03 11:34 | NUR ---
PT SLEEPING IN BED. NO S/S OF ACUTE DISTRESS. RESTRAINTS REMOVED. CALL LIGHT WITHIN REACH. SAFETY MEASURES ENSURED. WILL CONTINUE TO MONITOR.
[2017-02-03 11:52] VITALS: BP 93/61
[2017-02-03] MEDS ORDERED: POTASSIUM CHLORIDE 10 MEQ TABER PO SCH (12:34)
--- NOTE | 2017-02-03 14:02 | NUR ---
PT RESTING IN BED. NO S/S OF ACUTE DISTRESS. PT DENIES PAIN. CALL LIGHT WITHIN REACH. SAFETY MEASURES ENSURED. WILL CONTINUE TO MONITOR.
[2017-02-03 16:00] VITALS: BP 101/76
--- NOTE | 2017-02-03 17:00 | NUR ---
PT RESTING IN BED. NO S/S OF ACUTE DISTRESS. PT DENIES PAIN. IV SITE PATENT AND INTACT. CALL LIGHT WITHIN REACH. SAFETY MEASURES ENSURED. WILL CONTINUE TO MONITOR.
[2017-02-03] MEDS: SODIUM PHOS / POTASSIUM PHOS 1 PKT PDR PO SCH (17:11)
[2017-02-03] MEDS ORDERED: POTASSIUM CHLORIDE 40 MEQ, LIDOCAINE 1% 25 MG in NACL 0.9% 250 ML IV SCH (19:00)
--- NOTE | 2017-02-03 19:17 | NUR ---
ENDORSED PLAN OF CARE TO NIGHT RN. PT REMAINS IN STABLE CONDITION.
--- NOTE | 2017-02-03 19:18 | NUR ---
RECEIVED REPORT FROM MORNING SHIFT NURSE AT BEDSIDE. PT IS AAOX3, ABLE TO FOLLOW COMMANDS AND MADE NEEDS KNOWN. PAIN TO ABD, 3. NO SOB/DISTRESS NOTED, BREATHING EVEN AND UNLABORED, COUGHING PRESENT WITHOUT MUCOUS. SLIGHT WHEEZING LUNG SOUND NOTED, RT NOTIFIED. ON O2 AT 2L VIA NC. ON EXPELLER WORKER WITH SR. ROUND EXTENDED ABD NOTED, TENDERNESS IN TOUCH. IV SITE TO RIGHT AC 22GA RUNNING POTASSIUM, PATENT, C/D/I. GENERALIZED WEAKNESS NOTED, REQUIRE ASSISTANCE WITH ADL'S. PT'S FAMILY MEMBERS AT BEDSIDE AT THIS TIME. SAFETY MEASURES MAINTAINED, BED ALARM ON, IN LOW POSITION, CALL LIGHT WITHIN REACH. VSS, WILL CONTINUE TO MONITOR.
--- NOTE | 2017-02-03 19:35 | NUR ---
PT HAD A LARGE BOWEL MOVEMENT, PABLO CARE PROVIDED, AND POSITION CHANGED FOR COMFORT.
[2017-02-03 20:00] VITALS: BP 104/71
[2017-02-03] MEDS: ALBUTEROL SULFATE/IPRATROPIU 3 ML SOL IH PRN (20:05)
[2017-02-03] MEDS ORDERED: LIDOCAINE 1% 0 ML ONE (20:33)
--- NOTE | 2017-02-03 20:45 | NUR ---
WENT TO PT'S ROOM TO GIVE MEDICATION ORDERED, PT'S NEPHEW QUESTIONED ABOUT PT'S CONDITION, AND PLAN OF CARE FOR TONIGHT. EXPLAINED TO HIM ABOUT CURRENT PT'S CONDITION AND NURSING PLAN OF CARE, AND TREATMENT PLAN FOLLOW MD'S ORDER. PT'S NEPHEW BECAME VERY AGITATED, STATED" DO YOU REALLY KNOW WHAT IS GOING ON TO MY AUNT? WHY DO YOU GIVE SO MUCH MEDICATIONS TO HER? WHAT IS THE POINT? YOU ARE KILLING HER. WHO IS THE DOCTOR? ....." TRIED TO CLAM HIM DOWN AND EXPLAINED MORE TO HIM, HE STARTED MORE AGITATED, " WHAT IS YOUR NATIONALITY? DO YOU UNDERSTAND WHAT I AM TALKING, DO YOU UNDERSTAND [place]? YOU DON'T KNOW WHAT TO DO....." LEFT PT'S ROOM, REPORTED THE SITUATION TO CHARGE NURSE, RACHELE.
--- NOTE | 2017-02-03 20:50 | NUR ---
CHANGE NURSE WENT TO PT'S ROOM TO TALK TO THE NEPHEWS.
--- NOTE | 2017-02-03 21:00 | NUR ---
SECURITY CAME TO PT'S ROOM, MANUFACTURING EXECUTIVE CAME TO TALK TO PT'S FAMILY MEMBERS.
[2017-02-03] MEDS ORDERED: POTASSIUM CHL 40 MEQ/ D5-1/2NS 1,000 ML IV ONE (21:14)
--- NOTE | 2017-02-03 21:30 | NUR ---
PT 'S NEPHEWS ARE UPSET BECAUSE THEY WANT TO TALK TO THE DOCTOR ABOUT PT CONDITION AND PLAN TO DO , I EXPLAIN TO THEM IN OUR SCOPE A NURSE PT CONDITION AND ALSO I CALL DR AKASH HILL THAT RELATIVES WANT TO TALK TO THE DOCTOR TAKING CARE THE PT . SHE TOLD ME TO TELL THE RELATIVES THAT TOMORROW MORNING THEY CAN COME AND TALK TO THE DOCTOR, WEB COORDINATOR RAFAEL WAS NOTIFY AND SHE CAME TO THE UNIT TO TALK TO THE RELATIVES AND THEY WERE VERY UNCONTROL THEN RELATIVES WANT TO TAKE PT TO [facility] AND TEL THE PT TO [facility]
--- NOTE | 2017-02-03 21:40 | NUR ---
PT SIGNED AMA. TWO NEPHEWS AT BEDSIDE.
--- NOTE | 2017-02-03 21:50 | NUR ---
PT'S NEPHEW WAS AGITATED, SCRAM AT SECURITY IN THE [facility].
--- NOTE | 2017-02-03 22:00 | NUR ---
[employer]IO [employer] ENGAGEMENT MANAGER ALREADY TALKKED TO RAFAEL FORECLOSURE FIELD INSPECTOR.
--- NOTE | 2017-02-03 22:10 | NUR ---
STOCK PULLER FAVIO TOLD ME TO CALL THE POLICE BECAUSE PT NEPHEW WAS SCREAMING THEY WANT THAT WE CALL THE AMBULANCE FOR TRANSFER PT TO [facility] AND WE EXPLAIN THAT PT SIGNED AMA THAT WE PROVIDE TRANSFER WHEN THE DR ORDER TO TRANSFER THE PT NO FOR AMA.
--- NOTE | 2017-02-03 22:20 | NUR ---
POLICE CAME, PRODUCTION CLOTH CUTTER CAME.
--- NOTE | 2017-02-03 22:40 | NUR ---
PT REFUSED TO LEAVE THE HOSPITAL, AWARE, WILL KEEP PT TONIGHT. PT'S NEPHEWS LEFT HOSPITAL WITH POLICE.
--- NOTE | 2017-02-03 22:50 | NUR ---
DR BUSTOS WAS NOTIFY THAT AFTER POLICE TALKED TO THE NEPHEWS THEY DECIDED TO LEAVE THE PT HERE IN THE HOSPITAL AND COME BACK TOMORROW MORNING TO TALK TO THE DOCTOR
[2017-02-04] VITALS: BP 104/67
--- NOTE | 2017-02-04 | NUR ---
PT IS ASLEEP IN BED, NO CHANGE OF CONDITION AT THIS TIME. VSS.
[2017-02-04] MEDS: LORazepam 1 MG TAB PO SCH ×5 (00:44→23:47)
[2017-02-04] MEDS: PIPER/TAZO 3.375GM/D5W PREMIX 50 ML IV SCH ×5 (00:44→23:46)
[2017-02-04] MEDS: PROPRANOLOL 20 MG TAB PO SCH ×5 (00:44→17:00)
[2017-02-04 04:00] VITALS: BP 90/46
--- NOTE | 2017-02-04 04:00 | NUR ---
PT IS ASLEEP IN BED COMFORTABLY, POSITION CHANGED FOR OFF LOAD PRESSURE, VSS.
[2017-02-04 06:21] LABS: HEMATOCRIT 28.9 % (36-48); MEAN CORPUSCULAR HEMOGLOBIN 26 pg (27-31); MEAN CORPUSCULAR HGB CONC 31 g/dL (33-37); MEAN CORPUSCULAR VOLUME 84 fL (80-94); PLATELET COUNT (AUTO) 117 K/uL (140-450); RED BLOOD CELL COUNT(AUTO) 3.43 MIL/uL (4.20-5.40); RED CELL DISTRIBUTION WIDTH 19.8 % (11.6-13.7); WHITE BLOOD COUNT (AUTO) 15.3 K/uL (4.8-10.8)
[2017-02-04 06:29] LABS: ANION GAP 10.8 (8-16); CALCIUM 7.5 mg/dL (8.5-10.1); CARBON DIOXIDE 26.6 mmol/L (21-32); CREATININE 0.6 mg/dL (0.6-1.3); POTASSIUM 3.4 mmol/L (3.5-5.1)
[2017-02-04 06:30] LABS: MAGNESIUM 2.1 mg/dL (1.8-2.4)
--- NOTE | 2017-02-04 07:15 | NUR ---
REPORT GIVEN TO MORNING SHIFT NURSE FOR CONTINUE OF CARE. PT IS CURRENTLY IN STABLE CONDITION.
--- NOTE | 2017-02-04 07:16 | NUR ---
RECEIVED REPORT FROM THE CYBERATHLETE NURSE AT BEDSIDE FOR CONTINUITY OF CARE. PT IS AWAKE, MORE ALERT AND ORIENTED TODAY. SHE IS CARRYING ON CONVERSATION AND RESPONDING APPROPRIATELY. PT ABDOMEN IS DISTENDED. NO COMPLAINTS OF PAIN AT THIS TIME. NO MORE RESTRAINTS. NOTED THE IV ON L FA 20G SL. PER CYBERATHLETE SHE'S BEEN GETTING POTASSIUM. TODAY HER WBC IS AT 15.3. AMMONIA 53. IT IS HIGH. I WILL LET THE DOCTOR KNOW. WILL CONTINUE TO MONITOR PT.
[2017-02-04] MEDS ORDERED: POTASSIUM CHLORIDE 40 MEQ, LIDOCAINE 1% 25 MG in NACL 0.9% 250 ML IV ONE (07:20)
[2017-02-04] MEDS ORDERED: POTASSIUM PHOSPHATE 15 MM in NACL 0.9% 250 ML IV ONE (07:25)
[2017-02-04] MEDS ORDERED: NEOMYCIN 500 MG TAB PO SCH ×2 (07:28→13:00)
[2017-02-04 07:35] LABS: ANISOCYTOSIS 1+; BAND % (MANUAL) 2 % (0-8); LYMPHOCYTES % (MANUAL) 6 % (20-46); MONOCYTES % (MANUAL) 10 % (5-12); NEUTROPHILS % (MANUAL) 82 (43-65); TARGET CELLS 1+
[2017-02-04 08:00] VITALS: BP 117/75
[2017-02-04] MEDS: FOLIC ACID 1 MG TAB PO SCH (08:50)
[2017-02-04] MEDS: FERROUS SULFATE 325 MG TABEC PO SCH ×2 (08:50→17:00)
[2017-02-04] MEDS: SODIUM PHOS / POTASSIUM PHOS 1 PKT PDR PO SCH ×2 (08:50→12:19)
[2017-02-04] MEDS: SPIRONOLACTONE 50 MG TAB PO SCH ×2 (08:50→21:13)
[2017-02-04] MEDS: THIAMINE 100 MG TAB PO SCH (08:51)
[2017-02-04] MEDS: LACTOBACILLUS RHAMNOSUS GG 1 EACH CAP PO SCH (08:51)
[2017-02-04] MEDS: LACTULOSE 20 GM/30 ML UDC PO SCH ×3 (08:51→17:00)
[2017-02-04] MEDS: PANTOPRAZOLE 40 MG INJ VIAL IVP SCH (08:51)
--- NOTE | 2017-02-04 08:55 | NUR ---
ADMINISTERED MORNING MEDS. PT TOLERATED WELL. PT IS CONFUSED. SHE IS SOILED. CLINICAL TRIALS MANAGER AND I CHANGED HER AND PULLED HER UP IN BED. SHE IS NOW CLEAN AND DRY. STARTED THE POTASSIUM PHOSPHATE PER MD. ONCE SHE'S DONE, WE WILL START THE K RIDER. PT IS RESTING IN BED. NO SIGNS OF DISTRESS.
--- NOTE | 2017-02-04 10:33 | NUR ---
I AM CHARTING IN FRONT OF HER ROOM. SHE IS RESTING, WITH HER EYES CLOSED, KNEES BENT UP IN THE AIR. ONCE IN A WHILE SHE'LL SAY SOMETHING AND GO BACK TO SLEEP. IV STILL INFUSING. NO SIGNS OF DISTRESS. WILL CONTINUE TO MONITOR.
[2017-02-04] MEDS ORDERED: POTASSIUM CHLORIDE 40 MEQ, LIDOCAINE 1% 25 MG in NACL 0.9% 250 ML IV SCH (10:44)
--- NOTE | 2017-02-04 10:56 | NUR ---
CM NOTE CONCURRENT REVIEW SENT TO [facility] FAX# [phone] TRACKING# [id number] PH# [phone] MIC MEDINA [id number]
--- NOTE | 2017-02-04 10:57 | NUR ---
PHYSICAL THERAPY HERE TO TRY AND WALK HER. WE WILL SEE IF SHE CAN GET UP TODAY.
[2017-02-04 12:00] VITALS: BP 109/66
--- NOTE | 2017-02-04 12:15 | NUR ---
PT SLEEPING. HARD TO AROUSE. GOT HER TO TAKE HER PILLS BUT SHE ONLY HAS 1 SIP OF LATULOSE AND REFUSED THE REST. SHE IS SO TIRED, SHE'S BEEN JUST SLEEPING. I HELD THE ATIVAN. HER MOTHER IS HERE, AT BEDSIDE. WILL SIT WITH HER FOR A FEW HOURS AND WILL LEAVE. WE WILL JUST LET HER SLEEP. REQUESTED A PARACENTESIS TRAY AND BOTTLES, I PUT THEM AT BEDSIDE.
[2017-02-04] MEDS ORDERED: RIFAXIMIN 550 MG TAB PO SCH (12:55)
--- NOTE | 2017-02-04 14:12 | NUR ---
TRIED TO ADMINISTER THE RIFAMPIN AND INDERAL, PT REFUSED MEDS. EVEN WITH MUCH COAXING, PT WOULD NOT OPEN HER MOUTH. ALREADY REMOVED THE PILLS OUT OF PACKAGE, I WILL WASTE IT IN THE SHARPS CONTAINER.
[2017-02-04] MEDS: LORazepam 2 MG/ML VIAL IVP PRN ×2 (14:23→16:13)
--- NOTE | 2017-02-04 15:30 | NUR ---
ADMINISTERED THE POTASSIUM W/ LIDOCAINE. PT IS TOLERATING IT WELL.
[2017-02-04 16:00] VITALS: BP 114/85
--- NOTE | 2017-02-04 16:20 | NUR ---
DR. LOBO TRIED TO DO THE PARACENTESIS. NOT BIG ENOUGH POCKETS TO DO THE PARACENTESIS. ATTEMPTED BUT DECIDED NOT TO DO THE PROCEDURE. US TECH, GITA LOBO AND RADHA IN THE ROOM.
--- NOTE | 2017-02-04 17:00 | NUR ---
PT SLEEPING. I WOKE HER UP TO GIVE HER HER MEDS. PT REFUSED TO OPEN MOUTH. REFUSED ALL MEDS.
--- NOTE | 2017-02-04 18:38 | NUR ---
PT SLEEPING SOUNDLY. NO SIGNS OF DISTRESS. WILL CONTINUE TO MONITOR PT.
--- NOTE | 2017-02-04 19:15 | NUR ---
ENDORSED PT TO THE SEAPORT PLANNING MANAGER NURSE AT BEDSIDE FOR CONTINUITY OF CARE. PT IS IN STABLE CONDITION. PT IS SLEEPING SOUNDLY. NO SIGNS OF DISTRESS.
--- NOTE | 2017-02-04 19:30 | NUR ---
RECEIVED REPORT FROM DAY RN AT BEDSIDE, PATIENT IS SLEEPING, EASILY AWOKEN, PATIENT IS AAOX2 TO NAME AND , PATIENT STATED THE YEAR WAS 1970 AND DID NOT KNOW WHERE SHE WAS. PATIENT IS ON ROOM AIR. NO SOB OR SIGN OF DISTRESS, SKIN IS INTACT WITH BILATERAL UPPER EXTREMITY BRUISING, ABDOMEN IS ROUND AND DISTENDED, IV TO LEFT FA IS PATENT AND INTACT, SAFETY MEASURES CHECKED, CALL LIGHT WITHIN REACH. BED ALARM ON, WILL CONTINUE TO MONITOR.
[2017-02-04 20:00] VITALS: BP 112/57
[2017-02-04] MEDS: ALBUTEROL SULFATE/IPRATROPIU 3 ML SOL IH PRN (20:41)
--- NOTE | 2017-02-04 20:41 | NUR ---
2010 PT TOOK OFF HHNTX HALF WAY THROUGH TX. BS ARE CLEAR NO REAL SOB NOTED. PT ASKED FOR HHNTX THEN TOOK IT OFF. ROOM AIR SATS 91%. PLACED PT ON 2LNC AND ENCOURAGED HER TO KEEP IT ON.
[2017-02-04] MEDS: RIFAXIMIN 550 MG TAB PO SCH (21:13)
--- NOTE | 2017-02-04 21:44 | NUR ---
PM MEDS ADMINISTERED, PATIENT TOLERATED WELL, PATIENT ASSISTED UP TO BEDSIDE COMMODE, PATIENT IS VERY WEAK AND NEEDS 2 PERSON ASSIST. PATIENT HAD WATERY BOWEL MOVEMENT STATED SHE FEELS LIKE SHE IS HAVING CRAMPS LIKE MENSTRUAL CRAMPS. PATIENT ASSISTED BACK TO BED, REPOSITIONED. SAFETY MEASURES CHECKED, PATIENT ON O2 2L NC, GAVE PATIENT ICE WATER, PATIENT STATED SHE DID NOT WANT TO EAT HER DINNER, CALL LIGHT WITHIN REACH. WILL CONTINUE TO MONITOR.
[2017-02-05] VITALS: BP 106/78
--- NOTE | 2017-02-05 | NUR ---
VITAL SIGNS STABLE, MEDICATIONS ADMINISTERED PER MD ORDER, PATIENT ATTEMPTED TO GET OUT OF BED STATING SHE WAS GOING BACK TO THE HOSPITAL, REORIENTED PATIENT TO SURROUNDINGS, PATIENT COMPLIANT, LAID BACK IN BED, CALL LIGHT WITHIN REACH. WILL CONTINUE TO MONITOR.
[2017-02-05] MEDS: MORPHINE SULFATE 2 MG/ML SYR IVP PRN (01:16)
--- NOTE | 2017-02-05 02:30 | NUR ---
PATIENT SLEEPING, NO SOB OR SIGN OF DISTRESS AT THIS TIME, CALL LIGHT WITHIN REACH. WILL CONTINUE TO MONITOR.
[2017-02-05 04:00] VITALS: BP 121/74
--- NOTE | 2017-02-05 04:30 | NUR ---
VITAL SIGNS STABLE, NO SOB OR SIGN OF DISTRESS, CALL LIGHT WITHIN REACH. WILL CONTINUE TO MONITOR.
[2017-02-05] MEDS: LORazepam 1 MG TAB PO SCH (06:00)
[2017-02-05] MEDS: PIPER/TAZO 3.375GM/D5W PREMIX 50 ML IV SCH ×3 (06:23→17:23)
--- NOTE | 2017-02-05 07:42 | NUR ---
ENDORSED PATIENT TO DAY RN AT BEDSIDE, PATIENT IN STABLE CONDITION
--- NOTE | 2017-02-05 07:43 | NUR ---
RECEIVED PT IN BED. ASLEEP. AWAKEN TO VOICE. ALERT, ORIENTEDX2. NO SOB NOTED ON 2LPM VIA NC. DENIES ANY PAIN OR DISCOMFORT AT THIS TIME. POSITIVE BOWEL SOUNDS NOTED ON FOUR QUADRANTS. ABDOMINAL DISTENTION NOTED. DR. LOBO DOING ROUNDS AND CAME TO SEE PT. PT ON BEDREST. BEDPAN OFFERED NEEDED. SAFETY PRECAUTION IN PLACE. CALL LIGHT WITHIN REACH.
[2017-02-05 08:00] VITALS: BP 109/71
[2017-02-05] MEDS: FOLIC ACID 1 MG TAB PO SCH (08:51)
[2017-02-05] MEDS: PROPRANOLOL 20 MG TAB PO SCH ×3 (08:52→17:00)
[2017-02-05] MEDS: FERROUS SULFATE 325 MG TABEC PO SCH ×2 (08:52→17:23)
[2017-02-05] MEDS: LACTOBACILLUS RHAMNOSUS GG 1 EACH CAP PO SCH (08:53)
[2017-02-05] MEDS: THIAMINE 100 MG TAB PO SCH (08:54)
[2017-02-05] MEDS: SPIRONOLACTONE 50 MG TAB PO SCH (08:54)
[2017-02-05] MEDS: PANTOPRAZOLE 40 MG INJ VIAL IVP SCH (08:55)
[2017-02-05] MEDS: LACTULOSE 20 GM/30 ML UDC PO SCH ×3 (08:55→17:23)
[2017-02-05] MEDS: RIFAXIMIN 550 MG TAB PO SCH (08:58)
[2017-02-05] MEDS ORDERED: FUROSEMIDE 40 MG TAB PO SCH (09:00)
--- NOTE | 2017-02-05 09:01 | NUR ---
MIC WINCHESTER RECEIVED A CALL FROM MIC DEGROOT OF [facility] PH# [phone] ON 02/04/17 12:20PM REQUESTING THAT PATIENT'S CARE BE TRANSFERRED TO [facility]. CALLED [facility] PH# [phone] AND WAS INFORMED THAT DR. UPTON IS THE ONE ROUNDING FOR THE [facility] TODAY. MIC STAHL AWARE. Addendum: 02/05/17 at 0923 by Portia Hilton CM *DR. UPTON IS THE ONE ROUNDING FOR THE [facility] ON 02/04/17 Addendum: 02/05/17 at 0947 by Portia Hilton CM *LATE ENTRY
[2017-02-05 09:15] LABS: HEMATOCRIT 30.1 % (36-48); HEMOGLOBIN 9.3 g/dL (12.0-16.0); MEAN CORPUSCULAR HEMOGLOBIN 27 pg (27-31); MEAN CORPUSCULAR HGB CONC 31 g/dL (33-37); MEAN CORPUSCULAR VOLUME 87 fL (80-94); PLATELET COUNT (AUTO) 124 K/uL (140-450); RED BLOOD CELL COUNT(AUTO) 3.47 MIL/uL (4.20-5.40); WHITE BLOOD COUNT (AUTO) 13.9 K/uL (4.8-10.8)
[2017-02-05 09:37] LABS: ALBUMIN 1.7 g/dL (3.4-5.0); ANION GAP 11.1 (8-16); CALCIUM 7.7 mg/dL (8.5-10.1); CREATININE 0.6 mg/dL (0.6-1.3); MAGNESIUM 2.1 mg/dL (1.8-2.4); PHOSPHORUS 2.3 mg/dL (2.5-4.9); POTASSIUM 4.1 mmol/L (3.5-5.1); TOTAL BILIRUBIN 10.6 mg/dL (0.0-1.0)
[2017-02-05 09:40] LABS: BAND % (MANUAL) 3 % (0-8); EOSINOPHILS % (MANUAL) 1 % (0-4); LYMPHOCYTES % (MANUAL) 12 % (20-46); MONOCYTES % (MANUAL) 13 % (5-12); NEUTROPHILS % (MANUAL) 71 (43-65)
[2017-02-05 09:41] LABS: ANISOCYTOSIS 1+; TARGET CELLS 2+; TEAR DROP CELLS 1+
[2017-02-05] MEDS: LORazepam 2 MG/ML VIAL IVP PRN (10:17)
[2017-02-05 12:00] VITALS: BP 99/64
--- NOTE | 2017-02-05 12:06 | NUR ---
SS NOTE: I SPOKE WITH PT'S FRIEND, LILO REGARDING PT'S DISCHARGE PLAN. SHE STATED THAT SHE JUST FINISHED SPEAKING WITH PT'S MOTHER, WHO IS IN HER 80s AND SHE IS ON HER WAY TO THE HOSPITAL TO SEE PT. SHE ALSO STATED THAT SHE WILL BE SPEAKING TO HER SISTER TO COME UP WITH A PLAN ON WHETHER PT WOULD GO TO HER HOUSE OR PT'S HOME SO THAT PT CAN FOCUS ON HER SOBRIETY.
--- NOTE | 2017-02-05 12:10 | NUR ---
MIC NOTE CONCURRENT REVIEW, ORDERS FOR FWW AND HOME HEALTH FOR PHYSICAL THERAPYAND NURSING SAFETY EVAL SENT TO [facility] FAX# [phone] PH# MIC DEGROOT [phone] EXT [phone]
[2017-02-05] MEDS ORDERED: LORazepam 1 MG TAB PO SCH ×2 (13:00)
--- NOTE | 2017-02-05 13:43 | NUR ---
SS NOTE: I SPOKE WITH PT, PT'S MOM AND PT'S SISTER BEDSIDE. PT STATED THAT SHE WOULD LIKE TO GO HOME WITH HER MOM UPON DISCHARGE. PT'S MOM STATED THAT THEY HAVE A LOT OF FAMILY AT HOME THAT CAN PROVIDE PT WITH ANY NEEDED ASSISTANCE.
--- NOTE | 2017-02-05 14:05 | NUR ---
CM NOTE SPOKE WITH MIC DEGROOT OF [facility] PH# [phone] EXT [phone] AND SHE SAID FOR THE FWW WITH [facility] AUTH# [id number], HOME HEALTH WITH [facility] AUTH# [id number]. SPOKE WITH MAI OF [facility] PH# [phone] AND HE SAID FWW WILL BE DELIVERED BEDSIDE TODAY ETA 4:30PM. SPOKE WITH TICO OF [facility] PH# [phone] AND SHE SAID PATIENT'S HOME HEALTH WILL START TOMORROW. CHARGE NURSE PITA EXT [phone] AWARE
[2017-02-05] MEDS ORDERED: FOLI1TAB90 PO (15:03)
[2017-02-05] MEDS ORDERED: LORA-476 PO (15:03)
[2017-02-05] MEDS ORDERED: LEVO750T2 PO (15:03)
[2017-02-05] MEDS ORDERED: CEP30L PO (15:03)
[2017-02-05] MEDS ORDERED: THIA-8 PO (15:03)
[2017-02-05] MEDS ORDERED: SPIR50TA PO (15:03)
[2017-02-05] MEDS ORDERED: FURO40TA9 PO (15:03)
[2017-02-05] MEDS ORDERED: FERR-18 PO (15:03)
[2017-02-05] MEDS ORDERED: SACC250C4 PO (15:03)
[2017-02-05] MEDS ORDERED: OXYC5TAB92 PO (15:05)
[2017-02-05] MEDS ORDERED: RIFA550T2 PO (15:05)
--- NOTE | 2017-02-05 15:09 | NUR ---
DR. GARCIA GAVE DISCHARGE ORDERS AND CARRIED OUT.
[2017-02-05 16:00] VITALS: BP 105/73
--- NOTE | 2017-02-05 16:00 | NUR ---
FWW RECEIVED BY PT. ROJO, SISTER OF PT AT BEDSIDE
--- NOTE | 2017-02-05 17:46 | NUR ---
DISCHARGE INSTRUCTION GIVEN TO PT. PT VERBALIZED UNDERSTANDING. PT SIGNED DISCHARGE PAPERS. NO SOB NOTED. DENIES ANY PAIN OR DISCOMFORT. FAMILY CALLED AND THEY ARE ON THEIR WAY TO TIRE BUFFER PT. PT KEPT CLEAN, DRY, AND COMFORTABLE. NEEDS ATTENDED. AWAITING FOR TIRE BUFFER. LATEST VITAL SIGNS FOLLOWS: T 98.3, BP 102/68, RR,20, 02 SAT AT 95%. WY 88. AWAITING FAMILY FOR TIRE BUFFER.
--- NOTE | 2017-02-05 18:50 | NUR ---
ADDITIONAL: PT WENT HOME ON STABLE CONDITION.
--- NOTE | 2017-02-05 18:50 | NUR ---
PT IV CANNULA INTACT AND REMOVED. ARM BAND REMOVED. MOTHER KATT CAME AND CHRONOMETER REPAIRER PT. PT DENIES ANY PAIN OR DISCOMFORT AT THIS TIME. NO SOB NOTED, NEEDS ATTENDED. WHEELED PT TO THE OUTSIDE PARKING LOT OF THE HOSPITAL, TO THEIR FAMILY OWNED VEHICLE.
== END 2017-02-05 18:50 | disposition home health service (06) | DRG 720 ==
LOC: MED 08:12 → MTU 11:06
PROVIDERS: ADMIT Student in an Organized Health Care Education/Training Program; ATTEND Student in an Organized Health Care Education/Training Program
PROC: 30233N1 Transfusion of Nonautologous Red Blood Cells into Peripheral Vein, Percutaneous Approach (ICD-10-PCS; 2017-02-01)
PROC: 0DJ08ZZ Inspection of Upper Intestinal Tract, Via Natural or Artificial Opening Endoscopic (ICD-10-PCS; principal; 2017-02-01 11:00)
PROC: 0W9G30Z Drainage of Peritoneal Cavity with Drainage Device, Percutaneous Approach (ICD-10-PCS; 2017-02-02)
PROC: 30233N1 Transfusion of Nonautologous Red Blood Cells into Peripheral Vein, Percutaneous Approach (ICD-10-PCS; 2017-02-03)
DX: A41.9 Sepsis, unspecified organism (principal); N17.0 Acute kidney failure with tubular necrosis; E43 Unspecified severe protein-calorie malnutrition; G92 Toxic encephalopathy; I85.00 Esophageal varices without bleeding; D69.6 Thrombocytopenia, unspecified; F33.2 Major depressive disorder, recurrent severe without psychotic features; K76.6 Portal hypertension; K72.90 Hepatic failure, unspecified without coma; E87.6 Hypokalemia; E83.39 Other disorders of phosphorus metabolism; F10.229 Alcohol dependence with intoxication, unspecified; K81.9 Cholecystitis, unspecified; E11.9 Type 2 diabetes mellitus without complications; F10.239 Alcohol dependence with withdrawal, unspecified; Y90.8 Blood alcohol level of 240 mg/100 ml or more; K70.31 Alcoholic cirrhosis of liver with ascites; K31.89 Other diseases of stomach and duodenum; N39.0 Urinary tract infection, site not specified; D64.9 Anemia, unspecified; K29.20 Alcoholic gastritis without bleeding; F41.1 Generalized anxiety disorder; R80.9 Proteinuria, unspecified; Z56.0 Unemployment, unspecified; Z91.19 Patient's noncompliance with other medical treatment and regimen; Z68.24 Body mass index [BMI] 24.0-24.9, adult
CPT/HCPCS: 36415; 71010; 72100; 76705; 78445; 80048; 80053; 80076; 80305; 82140; 82150; 82553; 82728; 82945; 83036; 83540; 83605; 83615; 83690; 83735; 83880; 84100; 84443; 84484; 85025; 85610; 85730; 86886; 86900; 86901; 86920; 87040; 87070; 87075; 87081; 87086; 87186; 87205; 93005; 94640; 96374; 96375; 97110; 97116; 97140; 97530; 99285; A9510; C9113; G0482; J0696; J1200; J1940; J2001; J2060; J2250; J2270; J2405; J2543; J3010; J3360; J3475; J3480; J3490; J7030; J7060; J7620; P9016; Q0092; Q0163